=== PATIENT | female | born 1955 | race Caucasian/White ===

== ENCOUNTER 2020-08-03 23:40 | Emergency (ER) | payer MEDICARE ==
[~2020-08-03] VITALS: Ht 157.5 cm; Wt 83.0 kg
[~2020-08-03 23:40] MED LIST: AMLO5 PO; Antivert25 MG PO; BUPR100 PO; CARV6.25; CITA20 PO; LEVSOD100; LISI20; OMEP20ER PO
[2020-08-03] MEDS ORDERED: SUCR1 PO (23:53)
[2020-08-04 00:02] LABS: BASOPHILS ABSOLUTE AUTO 0.06 K/mm3 (0.00-0.23); BASOPHILS PERCENT AUTO 1 % (0-2); EOSINOPHILS ABSOLUTE AUTO 0.81 K/mm3 (0.00-0.68); EOSINOPHILS PERCENT AUTO 7 % (0-6); Hematocrit 37.3 % (33.0-51.0); Hemoglobin 12.2 g/dL (11.5-16.0); IMMATURE GRAN ABSOLUTE AUTO 0.06 K/mm3 (0.00-0.10); IMMATURE GRAN PERCENT AUTO 1 % (0-1); LYMPHOCYTES PERCENT AUTO 14 % (21-46); MONOCYTES PERCENT AUTO 6 % (4-13); Mean Corpuscular HGB 29.8 pg (26.0-34.0); Mean Corpuscular HGB Conc 32.7 g/dL (31.5-36.5); Mean Corpuscular Volume 91 fL (80-100); Mean Platelet Volume 9.7 fL (9.1-12.4); NEUTROPHILS ABSOLUTE AUTO 8.48 K/mm3 (1.96-9.15); NEUTROPHILS PERCENT AUTO 72 % (41-73); Platelet Count 283 K/mm3 (150-400); RDW Coefficient Variation 12.7 % (11.7-14.2); RDW Standard Deviation 42.8 fL (35.1-46.3); White Blood Cell Count 11.71 K/mm3 (4.00-11.30)
[2020-08-04 00:20] LABS: Anion Gap 6 mmol/L (6-16); Blood Urea Nitrogen 25 mg/dL (8-24); Bun/Creatinine Ratio 30.6 (12.0-20.0); CO2, Blood 26 mmol/L (21-32); Calcium, Blood 8.8 mg/dL (8.5-10.1); Chloride, Blood 109 mmol/L (98-108); Creatinine, Blood 0.82 mg/dL (0.40-1.00); Glomerular Filtration Rate >60 (60-); Glucose, Blood 116 mg/dL (70-99); Potassium, Blood 4.1 mmol/L (3.5-5.5); Sodium, Blood 141 mmol/L (136-145)
[2020-08-04 03:00] LABS: Creatinine (POC) 0.8 mg/dL (0.6-1.0)
== END 2020-08-04 01:50 | disposition home or self-care (01) ==
LOC: ER 23:40
PROVIDERS: Emergency Medicine; Student in an Organized Health Care Education/Training Program
DX: R55 Syncope and collapse (principal); R53.1 Weakness; T42.75XA Adverse effect of unspecified antiepileptic and sedative-hypnotic drugs, initial encounter; I10 Essential (primary) hypertension; Z79.899 Other long term (current) drug therapy; Z88.5 Allergy status to narcotic agent; Z98.890 Other specified postprocedural states
CPT/HCPCS: 36415; 80048; 82565; 85025; 93005; 93010; 96360; 99285-25; J7120

== ENCOUNTER 2020-08-04 02:55 | Inpatient (IN) | payer MEDICARE ==
[~2020-08-04] VITALS: Ht 157.5 cm; Wt 83.9 kg
[~2020-08-04 02:55] MED LIST changes: +SUCR1 PO
[2020-08-04 03:17] LABS: BASOPHILS ABSOLUTE AUTO 0.05 K/mm3 (0.00-0.23); BASOPHILS PERCENT AUTO 0 % (0-2); EOSINOPHILS ABSOLUTE AUTO 0.31 K/mm3 (0.00-0.68); EOSINOPHILS PERCENT AUTO 2 % (0-6); Hematocrit 31.5 % (33.0-51.0); Hemoglobin 10.2 g/dL (11.5-16.0); IMMATURE GRAN ABSOLUTE AUTO 0.11 K/mm3 (0.00-0.10); IMMATURE GRAN PERCENT AUTO 1 % (0-1); LYMPHOCYTES ABSOLUTE AUTO 2.37 K/mm3 (0.84-5.20); LYMPHOCYTES PERCENT AUTO 14 % (21-46); MONOCYTES ABSOLUTE AUTO 0.88 K/mm3 (0.16-1.47); MONOCYTES PERCENT AUTO 5 % (4-13); Mean Corpuscular HGB 29.7 pg (26.0-34.0); Mean Corpuscular HGB Conc 32.4 g/dL (31.5-36.5); Mean Corpuscular Volume 92 fL (80-100); Mean Platelet Volume 10.1 fL (9.1-12.4); NEUTROPHILS ABSOLUTE AUTO 12.72 K/mm3 (1.96-9.15); NEUTROPHILS PERCENT AUTO 77 % (41-73); Platelet Count 308 K/mm3 (150-400); RDW Coefficient Variation 12.9 % (11.7-14.2); RDW Standard Deviation 43.1 fL (35.1-46.3); Red Blood Cell Count 3.43 M/mm3 (3.80-5.20); White Blood Cell Count 16.44 K/mm3 (4.00-11.30)
[2020-08-04 03:32] LABS: International Normalized Ratio 1.06; Prothrombin Time Results 11.3 Sec (9.7-11.5)
[2020-08-04 03:34] LABS: Alanine Aminotransfer (ALT/SGP 22 U/L (12-78); Albumin, Blood 2.9 g/dL (3.4-5.0); Albumin/Globulin Ratio 1.1 (0.8-1.8); Alk Phos 88 U/L (50-136); Anion Gap 7 mmol/L (6-16); Aspartate Aminotrans (AST/SGOT 8 U/L (12-37); Bilirubin, Total 0.4 mg/dL (0.1-1.0); Blood Urea Nitrogen 30 mg/dL (8-24); Bun/Creatinine Ratio 39.4 (12.0-20.0); CO2, Blood 26 mmol/L (21-32); Calcium, Blood 8.5 mg/dL (8.5-10.1); Chloride, Blood 109 mmol/L (98-108); Creatinine, Blood 0.76 mg/dL (0.40-1.00); Globulin, Blood 2.6 g/dL (2.2-4.0); Glomerular Filtration Rate >60 (60-); Glucose, Blood 134 mg/dL (70-99); Potassium, Blood 4.2 mmol/L (3.5-5.5); Sodium, Blood 142 mmol/L (136-145); Total Protein, Blood 5.5 g/dL (6.4-8.2)
--- NOTE | 2020-08-04 06:14 | NUR ---
ASSUMED PT CARE AT 0450 PT ARRIVED FROM ED ON GURNEY. ALERT AND ORIENTED AND ABLE TO MAKE NEEDS KNOWN. BLOOD TRANSFUSING UPON ARRIVAL. VSS, SEE FLOWSHEET. PT DENIES ANY FLANK OR CHEST PAIN. TEMP 99.9 WITH SHAKING AND CHILLS. PT DENIES THIS BEING NEW ONSET AND STATES THIS HAS BEEN AN ONGOING ISSUE. LUNG SOUNDS REMAIN CLEAR T/O ALL LOBES. PT DENIES SOB. PT NOTED TO BE NSR WITH HR 90'S. 18G PERIPHERAL IV'S TO BILATERAL AC AREAS. NS INFUSING AT 150ML/HR. BOWEL TONES NOTED TO BE HYPERACTIVE. PT HAD ONE, SMALL, BLOODY STOOL NOTED SINCE ARRIVAL; HOWEVER, SHE STATES SHE HAD TWO IN ED. WILL RECHECK H&H AT 0630. PT HAS A BLACK EYE TO LEFT EYE. PT STATES SHE HAD A SYNCOPAL EPISODE ON HER TOILET AT HOME AND LEANED FORWARD, HITTING HER HEAD ON HARDWARE. PT STATES HER WAS WITH HER WITH EACH SYNCOPAL EPISODE AND HE DENIES HER HITTING HER HEAD. PUPILS ARE 3MM, ROUND AND REACTIVE TO LIGHT. PT DENIES ANY N/V, WELL ANY HEADACHES. CALL LIGHT IS WITHIN REACH; PT ABLE TO MAKE HER NEEDS KNOWN. WENT HOME AFTER PT WAS SETTLED. WOULD LIKE CALLS REGARDING ANY UPDATES AND/OR FURTHER PROCEDURES. WILL CONTINUE TO MONITOR UNTIL REPORT IS HANDED OFF TO ONCOMING RN.
[2020-08-04 06:39] LABS: Hematocrit 29.5 % (33.0-51.0); Mean Corpuscular HGB 30.2 pg (26.0-34.0); Mean Corpuscular HGB Conc 33.9 g/dL (31.5-36.5); Mean Corpuscular Volume 89 fL (80-100); Mean Platelet Volume 9.9 fL (9.1-12.4); Platelet Count 196 K/mm3 (150-400); RDW Coefficient Variation 13.9 % (11.7-14.2); RDW Standard Deviation 45.1 fL (35.1-46.3); Red Blood Cell Count 3.31 M/mm3 (3.80-5.20); White Blood Cell Count 11.59 K/mm3 (4.00-11.30)
--- NOTE | 2020-08-04 06:53 | NUR ---
DR. JOAQUIN AT BEDSIDE BEDSIDE EVALUATION. STATES HE IS PLANNING ON ANOTHER COLONOSCOPY TODAY; HOWEVER, DOES NOT KNOW WHAT TIME. ORDERS FOR GOLYTELY 2L PRIOR TO PROCEDURE. AN ENEMA RIGHT BEFORE PROCEDURE. CLEAR LIQUID DIET UP UNTIL 2 HOURS PRIOR TO PROCEDURE.
[2020-08-04 10:15] LABS: Influenza A, PCR Negative (NEGATIVE); Influenza B, PCR Negative (NEGATIVE); Resp Syncytial Virus, PCR Negative (NEGATIVE); SARS-Cov-2 (COVID-19) PCR, MMC Negative (NEGATIVE)
--- NOTE | 2020-08-04 10:48 | NUR ---
History, Chart, Medications and Allergies reviewed before start of procedure. Lungs clear T/O to Auscultation. Patient confirms NPO status and agrees with scheduled surgery.
--- NOTE | 2020-08-04 11:23 | NUR ---
08/04/20 1123 Shira Johnson History, Chart, Medications and Allergies reviewed before start of procedure.PATIENT DETERMINED TO BE ASA APPROPRIATE FOR PROPOFOL SEDATION PRIOR TO START OF PROCEDURE BY MONITOR INTACT WITH CONTINUOUS PULSE OXIMETRY AND INTERMITTENT BP. 3-LEAD EKG REVIEWED WITH PHYSICIAN PRIOR TO START OF PROCEDURE. O2 VIA N/C INTACT THROUGHOUT SEDATION/PROCEDURE.
--- NOTE | 2020-08-04 12:00 | NUR ---
ASSUMED CARE OF PT, REPORT RCV'D FROM [facility] ZUNIGA. PT ALERT AND ORIENTED SITTING UP IN BED. PT DENIES ABDOMINAL PAIN AT THIS TIME BUT REPORTS FEELING "LIGHTHEADED". PT HAS HAD MULTIPLE BOUTS OF INCONTINENT WATER BOWEL MOVEMENT, RECTAL TUBE PLACED AT PT'S REQUEST. PT STARTED GOLYTELY BOWEL PREP @ 0745 AND RECEIVED ENEMA AT 1030 PRIOR TO TRANSPORTATION TO DAY SURGERY FOR COLONOSCOPY. PT'S HYPERTENSIVE AND TACHYCARDIC AT TIMES. PT'S AND DAUGHTER UPDATED WITH PT'S PROGRESS AND PLAN FOR ADDITIONAL SCOPE. SEE FULL SHIFT ASSESSMENT
--- NOTE | 2020-08-04 12:50 | NUR ---
1230 PT BACK FROM DAY SURGERY. PT REPORTS NEEDING TO EMPTY BLADDER, PER SURGICAL NURSES, DR. JOAQUIN WANTS PT TO AMBULATE LENNY WITH ASSISTANCE. PT PLACED ON EDGE OF BED AND ASSISTED TO TOILET WITH 2 RN'S. PT EMPTIED URINE AND HAD BOWEL MOVEMENT AND SUDDENLY STATED "I DON'T FEEL GOOD", PT BECAME PALE, LIMP AND DIAPHORETIC. THIS RN CALLED FOR ASSISTANCE, VITALS WERE TAKEN AND PT WAS FOUND TO BE HYPOTENSIVE WITH BP 76/57. PT ASSISTED TO BED AND CALL PLACED TO DR. JOAQUIN WHO ORDERED 1L LR BOLUS. PT STATING SHE IS STARTING TO FEEL BETTER. WILL CALL PT'S TO UPDATE.
[2020-08-04 14:17] LABS: Hematocrit 23.8 % (33.0-51.0)
--- NOTE | 2020-08-04 16:01 | NUR ---
PT ASSISTS WELL WITH GETTING ON BEDPAN BUT IS FREQUENTLY "LIGHTHEADED". PT BECOMES DIAPHORETIC AND PALE WITH EXERTION. PT CONTINUES TO HAVE BRIGHT RED BLOOD PER RECTUM. PT TRANSFERRING TO PCU.
--- NOTE | 2020-08-04 16:16 | NUR ---
PT FEELING LIKE SHE IS GOING TO PASS OUT. CHECKED BLOOD PRESSURE AND BP WAS 60/44 (50), FOLLOWED BY 62/38. CALL TO DR. JOAQUIN, NO ANSWER, LEFT DETAILED VOICEMAIL REQUESTING CALL BACK. CALLED DR. RAGLAND, ORDER FOR 1L NC BOLUS AND TO CALL WITH RECENT H&H RESULT. PT CHANGED TO ICU STATUS. CHARGE NURSE ATTEMPTING TO CALL DR. JOAQUIN AT THIS TIME.
[2020-08-04 16:17] LABS: Hematocrit 21.8 % (33.0-51.0); Hemoglobin 7.3 g/dL (11.5-16.0)
--- NOTE | 2020-08-04 16:29 | NUR ---
CALL TO DR. RAGLAND REGARDING PT'S HGB, ORDER TO TRANSFUSE 1 UNIT PRBC'S STAT.
--- NOTE | 2020-08-04 17:42 | NUR ---
SHIFT SUMMARY PT REMAINS ALERT AND ORIENTED, COOPERATIVE WITH CARE. PT CONTINUES TO REPORT FEELING "WEAK, NAUSEAUS" PT STATES THAT SHE "DOESN'T FEEL RIGHT". PT RECEIVING 1 UNIT PRBC AT THIS TIME. PT HYPOTENSIVE, PALE AND DIAPHORETIC. ABDOMEN SOFT, NON-TENDER WITH PALPATION. RECTAL TUBE REMAINS IN PLACE DRAINING BRIGHT RED LIQUID STOOL. CALL TO DR. RAGLAND, ORDER FOR ADDITIONAL 2 UNITS PRBC TO BE INFUSED, AND DR. RAGLAND TO CALL DR. JOAQUIN TO UPDATE AND REVIEW PLAN OF CARE. PT'S BP LABILE BECOMING HYPERTENSIVE FOLLOWED BY PERIODS OF "NOT FEELING WELL" AND HYPOTENSION. PT TACHYCARDIC WITH HR FROM 110-140'S. PT'S AT BEDSIDE.
--- NOTE | 2020-08-04 19:05 | NUR ---
Per admit trigger, I met with Yue to offer education on ACP. She told me she had been given an Advanced Directive packet and her took it home. No other concerns presented. She tells me she is hopeful for recovery. No rastafarian affiliation or practices. [employer] serevices will remain available.
--- NOTE | 2020-08-04 19:15 | NUR ---
ASSUMED PT CARE FROM [facility] NO PT RESTING IN BED ON HER RIGHT SIDE. RECTAL TUBE IN PLACE AND DRAINING DARK, MAROON COLORED STOOL WITH INTERMITTENT CLOTS NOTED. PT REMAINS ALERT AND ORIENTED AND ABLE TO MAKE HER NEEDS KNOWN. NS INFUSING VIA 18G IN RIGHT AC AT 100MLS/HR; NEW ORDERS TO CHANGE TO LR AT 150MLS/HR. 2 UNITS OF PRBC'S TRANSFUSING; VITAL SIGNS STABLE AT CHANGE OF SHIFT; HOWEVER, PER REPORT THEY HAVE BEEN VERY LABILE AND DURING PERIODS OF PT PRODUCING LARGE AMOUNTS OF BLOODY STOOL AND NOT "FEELING WELL", PT WILL BECOME HYPOTENSIVE. SINUS TACHYCARDIA NOTED WITH HR 110-120'S. LUNG SOUNDS ARE CLEAR. FEBRILE AT 100.6 WITH CHILLS; HOWEVER, SHE DENIES ANY CHEST OR FLANK PAIN, NO ITCHING, FLUSHING, OR SOB. NEW ORDERS TO TAKE PT TO CT FOR ABDOMEN AND PELVIS. RADIOLOGY DEPARTMENT AWARE AND PLAN TO TRANSPORT SHORTLY.
--- NOTE | 2020-08-04 19:31 | NUR ---
LEFT FOR CT
--- NOTE | 2020-08-04 19:54 | NUR ---
RETURNED FROM CT
--- NOTE | 2020-08-04 20:23 | NUR ---
RADIOLOGY UPDATE RADIOLOGY ANSWERING SERVICE CALLED ASKING TO SPEAK WITH PHYSICIAN REGARDING CT RESULTS. OBTAINED PHONE NUMBER AND PHYSICIANS NAME, CALLED DR. PADILLA AND RELAYED INFORMATION.
--- NOTE | 2020-08-04 20:26 | NUR ---
DR. PADILLA CALLED BACK REGARDING CT INFORMED ME THAT CT RESULTS ARE SHOWING PANCREATITIS, GASTRITIS, GASTRIC ULCER, AND IMPENDING PERFORATION. TO CALL DR. JOAQUIN SINCE HE PERFORMED THE EGD ON 08/03/20 WITH RESULTS AND IF HE HAS ANY QUESTIONS TO CALL DR. PADILLA DIRECTLY. DR. PADILLA STATED IF WE ARE UNABLE TO GET AHOLD OF DR. JOAQUIN THEN TO CALL HIM BACK.
[2020-08-04 20:35] LABS: Hemoglobin 10.2 g/dL (11.5-16.0)
--- NOTE | 2020-08-04 20:41 | NUR ---
CALL OUT TO DR. JOAQUIN. MESSAGE LEFT REGARDING ASKING FOR A RETURN CALL R/T CT RESULTS.
--- NOTE | 2020-08-04 20:57 | NUR ---
DR. PADILLA UPDATED REGARDING H&H RESULTS. UPDATED THAT DR. JOAQUIN HAS YET TO RETURN MY CALL. ORDERS TO CALL HIM BACK IF DR. JOAQUIN DOESN'T CALL BACK BY 2129. UPDATED ON VS WITH ORDERS TO DROP FLUIDS DOWN TO TKO D/T ELEVATED BP'S.
--- NOTE | 2020-08-04 21:40 | NUR ---
UPDATE DR. PADILLA CALLED AT 2129 LIKE HE ASKED. UPDATED THAT THERE WAS NO RETURN CALL FROM DR. JOAQUIN. UPDATED ON VS, THAT ARE STABLE AT THIS TIME. NEW ORDERS TO ADMINISTER PROTONIX 40MG IV NOW. MONITOR OVERNIGHT AND IF PT BECOMES HEMODYNAMICALLY UNSTABLE THEN TO CALL HIM BACK. WHEN RELAYING THIS INFORMATION TO THE PATIENT AND SPOUSE, BOTH DEMONSTRATED FRUSTRATION AND A LACK OF CONCERN FROM DR. JOAQUIN REGARDING HOW MUCH BLOOD PATIENT HAS BEEN LOSING AND HOW HEMODYNAMICALLY UNSTABLE SHE WAS EARLIER. THEREFORE, BOTH PATIENT AND SPOUSE ARE REQUESTING THAT DR. JOAQUIN NO LONGER FOLLOW THIS PATIENT. WILL NOTIFY DR. PADILLA NEXT TIME HE IS CALLED WITH AN UPDATE.
[2020-08-05 00:26] LABS: Hematocrit 29.6 % (33.0-51.0); Hemoglobin 10.1 g/dL (11.5-16.0)
[2020-08-05 04:51] LABS: BASOPHILS ABSOLUTE AUTO 0.07 K/mm3 (0.00-0.23); BASOPHILS PERCENT AUTO 1 % (0-2); EOSINOPHILS ABSOLUTE AUTO 0.06 K/mm3 (0.00-0.68); EOSINOPHILS PERCENT AUTO 1 % (0-6); Hematocrit 28.3 % (33.0-51.0); Hemoglobin 9.4 g/dL (11.5-16.0); IMMATURE GRAN ABSOLUTE AUTO 0.08 K/mm3 (0.00-0.10); IMMATURE GRAN PERCENT AUTO 1 % (0-1); LYMPHOCYTES ABSOLUTE AUTO 2.94 K/mm3 (0.84-5.20); LYMPHOCYTES PERCENT AUTO 22 % (21-46); MONOCYTES ABSOLUTE AUTO 0.97 K/mm3 (0.16-1.47); MONOCYTES PERCENT AUTO 7 % (4-13); Mean Corpuscular HGB 29.3 pg (26.0-34.0); Mean Corpuscular HGB Conc 33.2 g/dL (31.5-36.5); Mean Corpuscular Volume 88 fL (80-100); Mean Platelet Volume 9.9 fL (9.1-12.4); NEUTROPHILS ABSOLUTE AUTO 9.06 K/mm3 (1.96-9.15); NEUTROPHILS PERCENT AUTO 69 % (41-73); Platelet Count 152 K/mm3 (150-400); RDW Coefficient Variation 14.3 % (11.7-14.2); RDW Standard Deviation 45.8 fL (35.1-46.3); Red Blood Cell Count 3.21 M/mm3 (3.80-5.20); White Blood Cell Count 13.18 K/mm3 (4.00-11.30)
[2020-08-05 05:16] LABS: Albumin, Blood 2.2 g/dL (3.4-5.0); Anion Gap 8 mmol/L (6-16); Blood Urea Nitrogen 29 mg/dL (8-24); Bun/Creatinine Ratio 42.5 (12.0-20.0); CO2, Blood 23 mmol/L (21-32); Calcium, Blood 7.4 mg/dL (8.5-10.1); Chloride, Blood 113 mmol/L (98-108); Creatinine, Blood 0.68 mg/dL (0.40-1.00); Glomerular Filtration Rate >60 (60-); Glucose, Blood 145 mg/dL (70-99); Phosphorus, Blood 3.4 mg/dL (2.5-4.9); Potassium, Blood 3.5 mmol/L (3.5-5.5); Sodium, Blood 144 mmol/L (136-145)
--- NOTE | 2020-08-05 06:09 | NUR ---
END OF SHIFT SUMMARY PT HAS REMAINED HEMODYNAMICALLY STABLE T/O NIGHT. PT REMAINED HYPERTENSIVE; HOWEVER, DID NOT TREAT D/T HYPOTENSION R/T HEMORRHAGIC SHOCK EPISODE YESTERDAY. PT CONTINUES TO PRODUCE DARK, MAROON STOOLS THAT HAVE NOTED MICRO CLOTS; RECTAL TUBE REMAINS IN PLACE. LR IS TKO AT THIS TIME. PICC REMAINS PATENT TO LEFT UPPER ARM. PT CONTINUES TO VOID IN BRIEFS AND THEN NOTIFIES US WHEN SHE IS READY TO BE CHANGED D/T HER BEING FEARFUL OF ANOTHER SYNCOPAL EPISODE ON THE TOILET. BLACK EYE TO LEFT EYE IS GETTING MORE DARK IN COLOR AND BOTH EYES APPEAR SWOLLEN AT THIS TIME. WILL CONTINUE TO MONITOR UNTIL REPORT IS HANDED OFF TO ONCOMING RN.
--- NOTE | 2020-08-05 07:15 | NUR ---
Assumed care of pt at 0700. Bedside report received from Daniel MONTERO. Pt's spouse in recliner at bedside. Pt and spouse state dissatisfaction with Dr Jordan, stating "He's fired. I don't want to see him anymore". They "He doesn't seem to be very concerned". Pt states she was asked to ambulate when she didn't feel well, which led to syncopal episode out of bed yesterday. States concern that CT abdomen result showed potential ulcer. Stated dissatisfcation that patient has had multiple endoscopies and no resolution. Also state dissatisfaction that night nurse was unable to reach Dr Jordan. Pt and spouse state they want pt transferred to another facility. Pt's spouse departs from unit. Pt and spouse repeately state satisfaction with nursing staff. On assessment, pt is A&O x 4. Pleasant and cooperative with care. Requires only verbal cues for rolling/respositining in bed. Pt on room air. Lungs clear t/o. No cough. ST per monitor. BP high/normal. Rectal tube in place with dark liquid stool. Bed in lowest position. Call light in reach. Pt denies need at this time.
--- NOTE | 2020-08-05 07:45 | NUR ---
Dr Jordan in to see patient. This RN at bedside to support patient as she states she does not want Dr Jordan to oversee her care anymore. Pt declines physical examination and repeatedly asks him to "get out of my room". Dr Jordan states he did not receive any calls from the offgoing shift. Verified phone number. Incorrent number for Dr Jordan found in rolodex at previous nurse's desk. Dr Jordan notified. Pt notified. Pt states this finding does not change her dissatisfaction with Dr Jordan and pt states continued desire to transfer to another facility. Plan to notify spouse of this as well when next update is given.
--- NOTE | 2020-08-05 09:19 | NUR ---
Dr Rucker in to see patient. Provider states she thinks its acceptable for patient to get out of bed. Pt assisted to dangle, stand, and then transfer to recliner. Pt tolerated well. Remains in recliner at this time.
--- NOTE | 2020-08-05 09:26 | NUR ---
Call placed to Dr Rucker to address there were no additional H&H orders. Provider stated plan to enter orders.
[2020-08-05 09:52] LABS: Hematocrit 28.6 % (33.0-51.0); Hemoglobin 9.8 g/dL (11.5-16.0)
--- NOTE | 2020-08-05 10:40 | NUR ---
Patient back in bed from recliner. Bath given. Pt tolerated well.
--- NOTE | 2020-08-05 11:48 | NUR ---
Call placed to Dr Rucker to discuss pt's blood pressure. New orders received.
--- NOTE | 2020-08-05 14:16 | NUR ---
Pt departed from unit at 1220 via [facility] ambulance for [place]. Pt's spouse stopped by to see patient. Discussed night nurse's difficulty calling Dr Jordan and using a number that was not current. Pt's spouse stated this did not change his desire for pt to be transferred and continued to verbalize satisfaction with nursing staff. Provided with pt advocate phone number. Pt departed on room air. Report given to Geo MONTERO at [place]. Packet and belongings transferred with patient.
== END 2020-08-05 12:20 | disposition short-term general hospital (02) | DRG 378 ==
LOC: ER 02:55 → ICUW 02:56 → ICUE 02:56
PROVIDERS: Emergency Medicine; Family Medicine; Internal Medicine; Internal Medicine Gastroenterology; ADMIT Internal Medicine
PROC: 0W3P8ZZ Control Bleeding in Gastrointestinal Tract, Via Natural or Artificial Opening Endoscopic (ICD-10-PCS; principal; 2020-08-05)
PROC: 30233N1 Transfusion of Nonautologous Red Blood Cells into Peripheral Vein, Percutaneous Approach (ICD-10-PCS; 2020-08-05)
DX: K62.5 Hemorrhage of anus and rectum (principal); D62 Acute posthemorrhagic anemia; R55 Syncope and collapse; K21.9 Gastro-esophageal reflux disease without esophagitis; F41.8 Other specified anxiety disorders; R00.0 Tachycardia, unspecified; Z85.3 Personal history of malignant neoplasm of breast
CPT/HCPCS: 0241U; 36415; 36430; 36569; 74174; 80048; 80053; 80069; 82565; 85014; 85018; 85025; 85027; 85610; 85730; 86850; 86900; 86901; 86923; 88305; 88341; 88342; 93005; 93010; 96360; 96374; 96375; 96376; 99285-25; A9270; C1751; C1769; C9113; G0378; J2405; J2704; J7030; J7050; J7120; P9016; Q9967

== ENCOUNTER → 2021-02-01 | Outpatient (CLI) | payer MEDICARE | END | disposition home or self-care (01) | LOC: LAB SHORT 07:48 | DX: L82.1 Other seborrheic keratosis (principal) | CPT/HCPCS: 88305 ==

== ENCOUNTER → 2025-02-09 | Outpatient (CLI) | payer MEDICARE | LOC: LAB 07:40 → LAB SHORT 07:40 | DX: D04.72 Carcinoma in situ of skin of left lower limb, including hip (principal) | CPT/HCPCS: 88305 ==